=== PATIENT | female | born 1990 | race American Indian/Alaskan Native ===

== ENCOUNTER 2017-03-26 03:34 | Emergency (ER) | payer SELFPAY ==
[2017-03-26 03:34] VITALS: BMI 30.4
[2017-03-26 03:46] VITALS: RESP 16; O2SAT 98
--- NOTE | 2017-03-26 04:17 | C.PDOC ---
History Of Present Illness 26 year old female presents to the ED with a small pustule located on the left anterior thigh for approximately the past 3 days, related to a spider bite, but patient did not visualizing the spider. Patient was argumentative, confrontational and seemed intoxicated, also denying any other symptoms. Time Seen by Provider: 03/26/17 04:11 Chief Complaint (Nursing): Abnormal Skin Integrity History Per: Patient History/Exam Limitations: no limitations Onset/Duration Of Symptoms: Days Current Symptoms Are (Timing): Still Present Location Of Injury: Left: Thigh (pustule 1 cm radius, superficial surrounding erythema, no sign of edema), Anterior: Thigh Recent travel outside of the [place]: No Past Medical History Reviewed: Historical Data, Nursing Documentation, Vital Signs Vital Signs: Last Vital Signs Temp 97.7 F 03/26/17 04:35 Pulse 60 03/26/17 04:35 Resp 16 03/26/17 04:35 BP 98/66 L 03/26/17 04:35 Pulse Ox 98 03/26/17 05:05 - Medical History PMH: Asthma (as a child) Surgical History: No Surg Hx Family History: States: Unknown Family Hx - Social History Hx Tobacco Use: No Hx Alcohol Use: Yes Hx Substance Use: No - Immunization History Hx Tetanus Toxoid Vaccination: Yes Hx Influenza Vaccination: No Hx Pneumococcal Vaccination: No Review Of Systems Constitutional: Negative for: Fever, Chills Gastrointestinal: Negative for: Nausea Skin: Positive for: Other (Pustule left anterior thigh) Physical Exam - Physical Exam Appears: Non-toxic, No Acute Distress, Combative, Agitated, Other (Seems intoxicated ) Skin: Warm, Dry, Other (0.5 x 0.5 cm pustule mild surrounding erythema) Head: Atraumatic, Normacephalic Oral Mucosa: Moist Neck: Normal, Supple Chest: Symmetrical Cardiovascular: Rhythm Regular Respiratory: Normal Breath Sounds, No Rales, No Rhonchi, No Wheezing Gastrointestinal/Abdominal: Soft, No Tenderness Extremity: No Deformity Extremity: Bilateral: No Pedal Edema Neurological/Psych: Oriented x3, Normal Speech, Normal Cognition ED Course And Treatment O2 Sat by Pulse Oximetry: 98 (Room air) Pulse Ox Interpretation: Normal Progress Note: Motrin tab PO administered. Patient was given instructions to properly care for the bug bite. Medical Decision Making Medical Decision Making: small pustule to L anterior thigh x 3 days, not c/w "spider bite". mild surrounding erythema, no significant cellulitis. warm compresses, NSAIDS Disposition Doctor Will See Patient In The: Office Counseled Patient/Family Regarding: Studies Performed, Diagnosis - Disposition Referrals: Kendrick Gonzalez [Medical Doctor] - Disposition: HOME/ ROUTINE Disposition Time: 04:17 Condition: GOOD Additional Instructions: continue motrin and warm compresses, will burst on its own benadryl ointments may help with the itching. Follow-up w your PMD as needed. Instructions: Insect Bite or Sting (ED) Forms: [employer] (Indonesian) - Clinical Impression Clinical Impression: Skin lesion - Scribe Statement The provider has reviewed the documentation as recorded by the Scribe Mk Hall All medical record entries made by the Scribe were at my direction and personally dictated by me. I have reviewed the chart and agree that the record accurately reflects my personal performance of the history, physical exam, medical decision making, and the department course for this patient. I have also personally directed, reviewed, and agree with the discharge instructions and disposition.
[2017-03-26 04:52] VITALS: BP 98/66; PULSE 60; TEMP 97.7
== END 2017-03-26 04:35 | disposition home or self-care (01) ==
LOC: C.ER 03:34
DX: L98.9 Disorder of the skin and subcutaneous tissue, unspecified (principal)